=== PATIENT | female | born 1960 | race Caucasian/White ===

== ENCOUNTER → 2024-12-15 15:20 | Outpatient (CLI) | payer MEDICARE, OTHER, SELFPAY ==
[2024-12-15 17:03] LABS: Testosterone 9.58 ng/dL (5.71-77.0)
[2024-12-19 15:10] LABS: Estradiol, Sensitive <2.5 pg/mL (.)
== END ==
PROVIDERS: PCP Family Medicine; Referring Provider Family Medicine; Visit Provider Family Medicine
DX: N95.1 Menopausal and female climacteric states (principal)
CPT/HCPCS: 36415; 82627; 82670; 84403

== ENCOUNTER → 2025-05-18 16:16 | Outpatient (CLI) | payer MEDICARE, OTHER, SELFPAY ==
--- NOTE | 2025-05-18 16:28 | EKG_ITS ---
[facility] [address] [place] [address] Test Date: 2025-05-18 Pat Name: Vika Robert Department: [facility] Room: Gender: Female E Learning Developer: YANNI : 1960 Requested By: Order Number: [id number] Reading MD: Maximus Mcgregor Measurements Intervals [place] Rate: 57 P: 51 UT: 148 QRS: 24 QRSD: 90 T: 39 QT: 418 QTc: 406 Interpretive Statements Sinus bradycardia Nonspecific ST abnormality Electronically Signed On 05-20-2025 8:36:52 PDT by Maximus Mcgregor
== END ==
PROVIDERS: PCP Family Medicine; Referring Provider Family Medicine; Visit Provider Family Medicine
DX: R07.89 Other chest pain (principal)
CPT/HCPCS: 93005

== ENCOUNTER → 2025-06-25 08:01 | Outpatient (CLI) | payer MEDICARE, OTHER, SELFPAY ==
[2025-06-25 09:36] LABS: Cholesterol 238 mg/dL (140-199); HDL Cholesterol 97 mg/dL (40-60); Triglycerides 79 mg/dL (35-150)
[2025-06-26 05:10] LABS: CRP, High Sensitivity 0.95 mg/L (0.00-3.00)
== END ==
PROVIDERS: PCP Family Medicine; Referring Provider Family Medicine; Visit Provider Family Medicine
DX: Z00.00 Encounter for general adult medical examination without abnormal findings (principal); N94.10 Unspecified dyspareunia; N95.1 Menopausal and female climacteric states; M54.50 Low back pain, unspecified; M79.604 Pain in right leg; Z13.220 Encounter for screening for lipoid disorders
CPT/HCPCS: 36415; 80061; 82627; 82670; 84403; 86140

== ENCOUNTER → 2025-07-08 12:43 | Outpatient (CLI) | payer MEDICARE, OTHER, SELFPAY ==
--- NOTE | 2025-07-08 12:44 | DI.CT.S_ITS ---
PROCEDURE: CT CHEST WO CON INDICATIONS: nodule follow-up TECHNIQUE: Noncontrast 2.0-2.5 mm thick sections acquired from the pulmonary apices to the posterior costophrenic angles. 7 mm thick axial MIP and 5 mm coronal and sagittal reformats were then acquired. For radiation dose reduction, the following was used: automated exposure control, adjustment of mA and/or kV according to patient size. COMPARISON: Outside Facility, CT, CT CHEST WO CON, 01/04/2024, 8:12. FINDINGS: Image quality: Diagnostic. Lower Neck: No enlarged lymph nodes. Thyroid: No thyroid nodules which require sonographic follow up, per consensus guidelines. Axillae: No enlarged lymph nodes. Chest Wall: Unremarkable. Bones: Unremarkable. Lungs and Pleura: No pneumothorax or pleural effusions. Stable small pulmonary nodules in both lungs mild with previously measured 3 mm nodule in the lateral segment of the right middle lobe (3/138), previously 3 mm, 4 mm nodule in the medial segment of the right middle lobe (3/26), previously 4 mm, and a triangular, subpleural, likely intra fissural lymph node in the left major fissure (3/157). Stable 3 mm subsolid nodule in the lateral segment of the left lower lobe (3/181). Heart: Heart size is normal. No pericardial effusion. Thoracic Vessels: The aorta and pulmonary arteries demonstrate normal size. Mediastinum and Sarah: No enlarged lymph nodes. Esophagus: No wall thickening. No hiatal hernia. Upper Abdomen: Visualized upper abdomen solid organs and bowel loops appear normal. IMPRESSION: Stable small, sub 6 mm, nodules in both lungs, which require no further follow- up per Fleischner criteria. Fleischner Society criteria for SOLID lung nodule followup. Nodule size (mm)Low-risk patientHigh-risk patient<6 (single or multiple)No routine followup.Optional CT at 12 months. 6-8 (single or multiple)CT at 6-12 months, then optional CT at 18-24 mo.CT at 6-12 months, then CT at 18-24 months. >8 (single)CT at 3 months, PET-CT, or biopsy. Same as for low-risk pts. >8 (multiple)CT at 3-6 months, then optional CT at 18-24 mo.CT at 3-6 months, then CT at 18-24 months. Fleischner Society criteria for SUB-SOLID lung nodule followup. Solitary pure ground-glass nodules<6 mm (ground glass or part solid)No followup needed. 6 mm or larger (ground glass)CT at 6-12 months to confirm persistence, then CT every 2 years until 5 years.6 mm or larger (part solid)CT at 3-6 months to confirm persistence, then annual CT until 5 years if unchanged and solid component remains <6 mm. Multiple sub-solid nodules<6 mmCT at 3-6 months, then CT consider at 2 & 4 years for high risk patients. [address] at 3-6 months. Subsequent management based on most suspicious lesions. Recommendations do not apply to lung cancer screening, patients with immunosuppression, or patients with known primary cancer. Dictated by: Francisco Schumacher M.D. on 07/10/2025 at 7:48 Approved by: Francisco Schumacher M.D. on 07/10/2025 at 7:55
== END ==
PROVIDERS: PCP Family Medicine; Referring Provider Family Medicine; Visit Provider Family Medicine
DX: R91.1 Solitary pulmonary nodule (principal)
CPT/HCPCS: 71250